=== PATIENT | female | born 1955 | race Caucasian/White ===

== ENCOUNTER → 2017-04-03 | Outpatient (REF) | payer OTHER | LOC: ZZSTITCHES 15:34 | PROVIDERS: ATTEND Physician Assistant | DX: R60.9 Edema, unspecified (principal); M79.605 Pain in left leg | CPT/HCPCS: 82040; 82247; 82310; 82374; 82435; 82565; 82947; 83735; 84075; 84132; 84155; 84295; 84450; 84460; 84520; 85379 ==

== ENCOUNTER → 2017-09-29 | Outpatient (CLI) | payer OTHER ==
[~2017-09-29] MED LIST: DIPH0.5D12 IM; VARE1TAB3 PO
--- NOTE | 2017-09-30 08:23 | RADIOLOGY IMAGING REPORT ---
FACILITY: [facility] PATIENT NAME: LIN MAY : [id number] MR: [id number] V: [id number] EXAM DATE: [id number] ORDERING PHYSICIAN: LARISA BURDICK TECHNOLOGIST: Radha Leon This report includes an Addendum and supersedes previous reports for this exam. PROCEDURE:BILATERAL DIAGNOSTIC DIGITAL MAMMOGRAM WITH CAD ASSISTED INTERPRETATION & 3D TOMOSYNTHESIS COMPARISON:The patient's previous outside mammograms are not currently available at this time. However, they have been requested & comparison is recommended. INDICATIONS:lower outer quadrant left breast mass/palpable lump in the lower Left breast FINDINGS: Moderately heterogeneous fibroglandular tissue is seen throughout the breasts. In the medial inferior Left breast there is an approximate 1.6cm irregular mass. This corresponds to a solid irregular mass on today's Left breast Ultrasound in the 7 o'clock position. The 2 other solid masses identified in the 3 & 6 o'clock positions of the Left breast on today's Ultrasound are not as apparent on today's mammogram. There are extensive pleomorphic calcifications seen throughout the inferior portion of the Left breast & a few are in the upper portion of the Left breast. The parenchymal pattern in the Right breast appears relatively homogeneous although comparison to the previous mammogram is strongly urged. DIAGNOSTIC CATEGORY 5--HIGHLY SUGGESTIVE OF MALIGNANCY. RECOMMENDATIONS: ULTRASOUND-GUIDED CORE BIOPSY: LEFT BREAST. IMPRESSION: BIRADS 5: Highly suggestive of malignancy. Ultrasound guided core biopsy of the 3 solid masses in the Left breast as seen on today's Left breast Ultrasound recommended. Ultrasound guided core biopsy of at least 1 of the 4 abnormal appearing lymph nodes in the Left axilla also recommended. Comparison with the previous mammograms is strongly urged, particularly to assure stability of the parenchymal pattern of the Right breast & to evaluate the chronicity of the pleomorphic calcifications seen throughout the Left breast. Dictated by: Stephani Garcia M.D. on 09/29/2017 at 17:07 Transcribed by: CHHAYA on 09/30/2017 at 7:08 Approved by: Stephani Garcia M.D. on 09/30/2017 at 8:22 [facility] ADDENDUM: FINDINGS: The previous outside mammograms dated 10/04/08 have just now been received for comparison. The parenchymal pattern throughout the Right breast appears stable. The numerous pleomorphic calcifications throughout the Left breast were not present on the prior study are a concern for malignancy. DIAGNOSTIC CATEGORY 5--HIGHLY SUGGESTIVE OF MALIGNANCY. RECOMMENDATIONS: ULTRASOUND-GUIDED CORE BIOPSY: LEFT BREAST. IMPRESSION: BIRADS 5: Highly suggestive for malignancy. Ultrasound guided core biopsy of the 3 Left breast masses and at least 1 of the 4 abnormal appearing Left axillary lymph nodes are recommended as described in the original report. Dictated by: Stephani Garcia M.D. on 09/30/2017 at 13:19 Transcribed by: ODALIS on 09/30/2017 at 13:37 Approved by: Stephani aGrcia M.D. on 09/30/2017 at 14:51 [facility]
--- NOTE | 2017-09-30 08:23 | RADIOLOGY IMAGING REPORT ---
FACILITY: [facility] [place] PATIENT NAME: LIN MAY : [id number] MR: [id number] V: [id number] EXAM DATE: [id number] ORDERING PHYSICIAN: LARISA BURDICK TECHNOLOGIST: Becki Ramey RDMS(ABD,OBGYN,BR),RVT PROCEDURE:US LEFT BREAST COMPLETE COMPARISON:None. INDICATIONS:LT BREAST MASS/ABNORMAL MAMMOGRAM FINDINGS: In the 3 o'clock position of the Left breast adjacent to the nipple there is a 7.3 x 4.7 x 4.8cm ovoid solid hypoechoic nodule. In the 6 o'clock position of the Left breast 2cm from the nipple there is an irregular hypoechoic mass measuring 12.6 x 14.5 x 6.9mm with acoustic shadowing. In the 7 o'clock position of the Left breast there is an irregular hypoechoic mass measuring 1.6 x 1.3 x 1.4cm with acoustic shadowing. These 3 masses are concerning for malignancy. In the Left axilla there are 4 abnormal appearing lymph nodes extremely concerning for malignant involvement. The largest measures 2.5 x 2.1 x 1.5cm DIAGNOSTIC CATEGORY 5--HIGHLY SUGGESTIVE OF MALIGNANCY. RECOMMENDATIONS: ULTRASOUND-GUIDED CORE BIOPSY: LEFT BREAST. IMPRESSION: BIRADS 5: Highly suggestive of malignancy. There are 3 masses in the Left breast which are extremely concerning for malignancy. The largest is in the 7 o'clock position, next largest in the 6 o'clock position & the smallest is in the 3 o'clock position. Ultrasound guided core biopsy of these 3 masses recommended. Four abnormal appearing lymph nodes are identified in the Left axilla. Ultrasound guided core biopsy of at least 1 of these lymph nodes is recommended. Dictated by: Stephani Garcia M.D. on 09/29/2017 at 17:00 Transcribed by: CHHAYA on 09/30/2017 at 7:14 Approved by: Stephani Garcia M.D. on 09/30/2017 at 8:22 [facility]
== END ==
LOC: MAMO 01:35
PROVIDERS: ATTEND Nurse Practitioner Family
DX: N63.21 Unspecified lump in the left breast, upper outer quadrant (principal); N63.24 Unspecified lump in the left breast, lower inner quadrant; R92.1 Mammographic calcification found on diagnostic imaging of breast
CPT/HCPCS: 77062; 77066

== ENCOUNTER 2017-10-06 08:19 | Outpatient (RCR) | payer OTHER ==
[2017-10-06 08:46] LABS: PLATELET COUNT, AUTOMATED 215 K/uL (150-450)
[2017-10-06 09:10] LABS: LDL CHOLESTEROL 132 mg/dl
[2017-10-06 09:34] LABS: INR 0.97
--- NOTE | 2017-10-07 15:24 | RADIOLOGY IMAGING REPORT ---
FACILITY: [facility] PATIENT NAME: LIN MAY : [id number] MR: [id number] V: [id number] EXAM DATE: [id number] ORDERING PHYSICIAN: LARISA BURDICK TECHNOLOGIST: Bright Thorne RDMS, [facility] PROCEDURE: BIOPSY LEFT BREAST OF 3 LEFT BREAST MASSES, & 1 LEFT AXILLARY LYMPH NODE. COMPARISON: Prior mammograms 09/29/2017 & Left breast Ultrasound 09/29/2017. INDICATIONS: LT BREAST MASS FINDINGS: Prior to the exam, risks and benefits of the Ultrasound guided biopsies in the Left breast were discussed with the patient, as well as Ultrasound guided biopsy in the Left axilla. Informed consent was obtained. The patient was placed on the gurney and the Left breast was prepped and draped in normal sterile fashion. 1% lidocaine with locally injected for analgesia at each of the 4 biopsy sites. Using Ultrasound guidance, Ultrasound guided biopsy of a mass at the 7 o'clock position, 6 o'clock position, and 3 o'clock positions were performed. Each biopsy was performed with a small skin mary lou, and 16 gauge spring loaded biopsy gun. 3 samples were obtained at each of the breast mass positions. After each biopsy is completed, a breast biopsy marker was placed. Ultrasound images of the Left axilla were also obtained, and 1% lidocaine was locally injected for analgesia. After a small skin mary lou, an 18 gauge spring loaded biopsy needle is used to obtain 2 samples of the Left axilla enlarged lymph node. A breast biopsy clip was then placed. Diagnostic Left breast CC and MLO mammogram views have been obtained. There are 3 biopsy clips appear in good position in the breast. IMPRESSION: 1. Technically successful ultrasound guided biopsy a mass at the 7 o'clock position, 6 o'clock position, and 3 o'clock position of the Left breast, and an enlarged lymph node in the Left axilla. 2. Diagnostic mammogram demonstrated the clips in good position. Dictated by: Earl Guerrero M.D. on 10/07/2017 at 12:23 Transcribed by: ODALIS on 10/07/2017 at 14:18 Approved by: Earl Guerreor M.D. on 10/07/2017 at 15:22 [facility]
[2017-10-14] MEDS ORDERED: VAR05PT PO (13:13)
== END 2017-10-07 18:00 | disposition home or self-care (01) ==
LOC: US 08:19 → EDSTATUS 10-07 08:19 → US 10-07 18:00
PROVIDERS: ATTEND Nurse Practitioner Family
DX: Z00.00 Encounter for general adult medical examination without abnormal findings (principal); N63.20 Unspecified lump in the left breast, unspecified quadrant; R59.0 Localized enlarged lymph nodes; R73.09 Other abnormal glucose; R74.8 Abnormal levels of other serum enzymes; C50.912 Malignant neoplasm of unspecified site of left female breast
CPT/HCPCS: 19083; 36415; 77061; 77065; 82040; 82247; 82310; 82374; 82435; 82465; 82565; 82947; 82977; 83036; 83718; 84075; 84132; 84155; 84295; 84443; 84450; 84460; 84478; 84520; 85025; 85610; 85730; 88305; 88344